=== PATIENT | female | born 1970 | race Caucasian/White ===

== ENCOUNTER 2021-01-30 01:26 | Day surgery (SDC) | payer OTHER, SELFPAY ==
[2020-12-11 14:56] VITALS: BMI 19.3
--- NOTE | 2020-12-19 09:29 | P.HP_ITS ---
History of Present Illness History of Present Illness Consent: Risks, benefits, and alternatives have been discussed and questions answered. Patient agrees to proceed with procedure. Chief complaint: epigastric pain, neoplasm screening Narrative: Odalis Knight is a 50 year old female Was being investigated for epigastric pain. She also is referred for colon cancer screening Review of Systems Review of Systems: All systems reviewed & are unremarkable except as noted in HPI and below [facility] Social History Social History Smoking status: Never smoker Alcohol intake: never Substance use: never Substance use type: does not use Living arrangements: with family Spiritual care concerns: No Meds Home Medications and Allergies Home Medications Medication Instructions Recorded Confirmed Type aspirin [Adult Aspirin EC Low 81 mg PO DAILY 12/11/20 12/11/20 History Strength] pantoprazole 40 mg PO BID 12/11/20 12/11/20 History rosuvastatin 10 mg PO HS 12/11/20 12/11/20 History Allergies Allergy/AdvReac Type Severity Reaction Status Date / Time ciprofloxacin Allergy Severe Swelling Verified 12/11/20 14:58 of Lip/Tongue/Throat Exam Resp: Auscultation: clear to auscultation bilaterally Cardio: Rate: regular rate Rhythm: regular rhythm GI: GI Palp: Yes Soft to palpation and No Tenderness to palpation present (GI) Assessment and Plan Assessment and plan (1) Epigastric pain: Code(s): R10.13 - Epigastric pain Status: Acute Assessment and Plan: EGD with possible biopsy or dilatation or cautery. (2) Colon cancer screening: Code(s): Z12.11 - Encounter for screening for malignant neoplasm of colon Status: Acute Assessment and Plan: Colonoscopy with possible biopsy or polypectomy or cautery or injection of substances.
[2021-01-21 13:22] VITALS: BMI 19.3
--- NOTE | 2021-01-21 14:00 | PC.NURSE ---
pt is going to have her covid test at [facility] [place]. pt instructed she will have to have it done on january 27 and results will need to be faxed. gave her our fax number. she voiced understanding.
[2021-01-30 10:37] VITALS: BP 99/75; PULSE 89; RESP 16; TEMP 36.7; O2SAT 100
[2021-01-30] MEDS: LACTATED RINGERS 1,000 ML 150 ML IV CONT (10:48)
--- NOTE | 2021-01-30 11:06 | WPDANESEPPF ---
Anes - Initial Pre Proc Eval Procedure: Operation Date: 01/30/21 11:30 Proposed Procedures p Esophagogastroduodenoscopy & Screening Colonoscopy - Von Zapata MD Date/Time: 01/30/21 11:06 Surgeon: Von Zapata MD Pre Op Diagnosis: epigastric pain, neoplasm screening Patient Data Age: 50 Gender: F Height: 1.68 m Weight: 53.2 kg Last Vital Signs Temp 98.0 F 01/30/21 10:37 Pulse 89 01/30/21 10:37 Resp 16 01/30/21 10:37 BP 99/75 L 01/30/21 10:37 Pulse Ox 100 01/30/21 10:37 Allergies Allergy/AdvReac Type Severity Reaction Status Date / Time ciprofloxacin Allergy Severe Swelling Verified 01/30/21 10:33 of Lip/Tongue/Throat Home Medications Medication Instructions Recorded Confirmed Type aspirin [Adult Aspirin EC Low 81 mg PO DAILY 12/11/20 01/30/21 History Strength] pantoprazole 40 mg PO BID 12/11/20 01/30/21 History rosuvastatin 10 mg PO HS 12/11/20 01/30/21 History Patient hx anesthesia problems: none Family hx anesthesia problems: none PMFSH Past Medical History Medical History (Updated 01/30/21 @ 11:06 by Clarence Bentley MD) GERD (gastroesophageal reflux disease) H/O idiopathic seizure Hyperlipidemia Mitral valve prolapse Social History Social History Smoking status: Never smoker Alcohol intake: never Substance use: never Substance use type: does not use Living arrangements: with family Spiritual care concerns: No Anes - Eval Final PreProcedure Day of Procedure 01/30/21 11:06 Patient weight: normal Heart: regular rate and rhythm Lungs: clear to auscultation Airway: Mallampati scale class II Neurological: alert and oriented Last oral intake: >/= 8 hours ASA classification: III Anesthetic plan: proceed Anesthesia type and monitoring: general GIVS and standard monitoring Informed Consent: The patient's anesthetic plan and its attendant risks and benefits were discussed with the patient/family/POA. Questions were solicited and answers provided to the satisfaction of the patient/family/POA.
--- NOTE | 2021-01-30 11:17 | PM.HPGS ---
History of Present Illness History of Present Illness Consent: Risks, benefits, and alternatives have been discussed and questions answered. Patient agrees to proceed with procedure. Chief complaint: epigastric pain, neoplasm screening Narrative: Odalis Knight is a 50 year old female who has been suffering from epigastric pain for the last several months. She had been on meloxicam but is started. She took pantoprazole for 8 weeks without any significant improvement. She noticed perhaps some decrease in daytime episodes of pain. She frequently wakes up at night with epigastric pain that will last at least 20 or 30 minutes or until she falls asleep. Drinking cold water aggravates the pain. She is also here for colon cancer screening Review of Systems Review of Systems: All systems reviewed & are unremarkable except as noted in HPI and below PMFSH Past Medical History Medical History GERD (gastroesophageal reflux disease) H/O idiopathic seizure Hyperlipidemia Mitral valve prolapse Social History Social History Smoking status: Never smoker Alcohol intake: never Substance use: never Substance use type: does not use Living arrangements: with family Spiritual care concerns: No Meds Home Medications and Allergies Home Medications Medication Instructions Recorded Confirmed Type aspirin [Adult Aspirin EC Low 81 mg PO DAILY 12/11/20 01/30/21 History Strength] pantoprazole 40 mg PO BID 12/11/20 01/30/21 History rosuvastatin 10 mg PO HS 12/11/20 01/30/21 History Allergies Allergy/AdvReac Type Severity Reaction Status Date / Time ciprofloxacin Allergy Severe Swelling Verified 01/30/21 10:33 of Lip/Tongue/Throat Vital Signs Vital Signs - 24 hr 01/30/21 10:37 Temperature 36.7 C Pulse Rate 89 Respiratory Rate 16 Blood Pressure 99/75 L Pulse Oximetry 100 Exam Const: General: alert Orientation/consciousness: patient oriented x3 Resp: Auscultation: clear to auscultation bilaterally Cardio: Rhythm: regular rhythm GI: GI Palp: Yes Soft to palpation and No Tenderness to palpation present (GI) Neuro: General: patient oriented x3 Assessment and Plan Assessment and plan (1) Epigastric pain: Code(s): R10.13 - Epigastric pain Status: Acute Assessment and Plan: EGD with possible biopsy or dilatation or cautery. (2) Colon cancer screening: Code(s): Z12.11 - Encounter for screening for malignant neoplasm of colon Status: Acute Assessment and Plan: Colonoscopy with possible biopsy or polypectomy or cautery or injection of substances.
[2021-01-30] MEDS: BENZOCAINE (*SP) 60 ML SPRAY CAN (HURRICAINE) 1 SPRAY MUCOUS MEM (11:30)
[2021-01-30 11:58] VITALS: BP 96/65; PULSE 78; RESP 24; O2SAT 100
[2021-01-30 12:08] VITALS: BP 104/52; PULSE 78; RESP 72; O2SAT 100
[2021-01-30 12:18] VITALS: BP 108/77; PULSE 78; RESP 68; O2SAT 100
== END 2021-01-30 12:45 | disposition home or self-care (01) ==
PROVIDERS: PCP Family Medicine; Visit Provider Internal Medicine Gastroenterology
PROC: 0DJ08ZZ Inspection of Upper Intestinal Tract, Via Natural or Artificial Opening Endoscopic (ICD-10-PCS; CPT 43235; principal; 2021-01-30 11:30)
DX: Z12.11 Encounter for screening for malignant neoplasm of colon (principal); R13.10 Dysphagia, unspecified; K21.9 Gastro-esophageal reflux disease without esophagitis; K29.70 Gastritis, unspecified, without bleeding; E78.5 Hyperlipidemia, unspecified; I34.1 Nonrheumatic mitral (valve) prolapse; Z79.82 Long term (current) use of aspirin
CPT/HCPCS: 43239; G0121; 87081; 88305; J2001; J2704; J7120

== ENCOUNTER 2022-05-18 07:50 | Outpatient (CLI) | payer OTHER, SELFPAY ==
--- NOTE | ~2022-05-18 | XR_ITS ---
EXAMINATION: XR UGIAC w barium swallow DATE: 05/18/2022 08:24 INDICATION: Epigastric abdominal pain. Gastroesophageal reflux disease. TECHNIQUE: The patient drank thick barium, gas-producing crystals, and thin barium. Fluoroscopy of th e esophagus, stomach, and proximal small bowel was performed. Fluoroscopy exposure time was 0.7 minut es. The total number of images was 277. Total dose-area product was 0.66 Gy-cm^2. COMPARISON: None. FINDINGS: There is no mass or stricture of the esophagus. Esophageal motility is normal. There is no hiatal hernia. There was no gastroesophageal reflux with provocative maneuvers. The stomach and proxi mal small bowel show normal folding patterns. The proximal jejunum is in the right abdomen, consisten t with bowel malrotation. IMPRESSION: 1. No etiology for the patient's symptoms. Reviewed, dictated and finalized at location A. [facility]
== END 2022-05-18 07:51 | disposition home or self-care (01) ==
PROVIDERS: Visit Provider Nurse Practitioner
DX: R10.13 Epigastric pain (principal); R14.2 Eructation
CPT/HCPCS: 74246

== ENCOUNTER → 2022-07-07 15:38 | Outpatient (CLI) | payer OTHER, SELFPAY ==
--- NOTE | ~2022-07-07 | CT_ITS ---
CT Angiogram of the Abdomen with contrast. History: Epigastric pain, jejunal malrotation. Spiral CT of the abdomen was performed after the administration of intravenous contrast. 100 cc of Om nipaque 350 was administered intravenously without complication. 3-D reconstructed images were perfor med by the technologist on the workstation. Dose reduction technique was used on this scan by [employer] automated exposure control and iterative reconstruction technique. The dose-length product (DLP) w as 166.82 mGy-cm. COMPARISON: 02/22/2015 Findings: Scans through the lung bases demonstrate linear left basilar atelectatic change or scarring . Minimal pericardial fluid noted. The liver, spleen, pancreas, adrenals and kidneys are within normal limits. Cholecystectomy clips pre sent. No evidence of aortic aneurysm. No lymphadenopathy is seen. Bowel somewhat difficult to trace, but ligament of Treitz is probably abnormally located, there is gifford spected reversal of the SMA/SMV relationship, suggestive of small bowel malrotation. No bowel obstruc tion or ascites evident. 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 Minimal pericardial fluid. Reviewed, dictated and finalized at location . 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 Minimal pericardial fluid.
== END ==
PROVIDERS: Visit Provider Nurse Practitioner
DX: R10.13 Epigastric pain (principal); R14.2 Eructation; K29.70 Gastritis, unspecified, without bleeding; K21.9 Gastro-esophageal reflux disease without esophagitis; R93.5 Abnormal findings on diagnostic imaging of other abdominal regions, including retroperitoneum
CPT/HCPCS: 74175; Q9967

== ENCOUNTER 2022-11-19 02:05 | Day surgery (SDC) | payer OTHER, SELFPAY ==
[2022-11-10 08:39] VITALS: BMI 19.5
--- NOTE | 2022-11-17 15:35 | PM.HPGS ---
History of Present Illness History of Present Illness Consent: Risks, benefits, and alternatives have been discussed and questions answered. Patient agrees to proceed with procedure. Chief complaint: GERD Narrative: Odalis Knight is a 52 year old female Who comes in today for investigation of globus and possible GERD. She has a congenital small bowel movement rotation and history of NERD with chronic gastritis. Supposed to see Dr. Bell but had to cancel appt due to illness with (esop cancer) and mother (lung CA).? She states for the last several months she has been having a globus sensation or a lump feeling in her upper esophagus that occurs only with swallowing.? She feels like something will move In her throat on the left side if she turns her neck a certain way. She has seen an ENT physician and is supposed to go back next week.? She does state that she feels like liquids and foods moving more slowly down her esophagus but do not get stuck.? Denies odynophagia.? She also reports that she has been noticing that her cheeks are more swollen which is causing her to bite on the side of her tongue along with hoarseness of her voice. She also feels it in her ears as well.? Denies any typical reflux symptoms.? PCP placed her on Omeprazole 20 mg daily and has not noticed any change in symptoms. She previously was on Famotidine 40 mg daily but stopped this several months ago. I had performed an EGD and colonoscopy 2 years ago. She was found have gastritis on EGD but otherwise examination was unremarkable. 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 Mitral valve prolapse Nonerosive esophageal reflux disease Postprandial epigastric pain Swelling of buccal mucosa Social History Social History Smoking status: Never smoker Alcohol intake: never Substance use: never Substance use type: does not use Living arrangements: with family Spiritual care concerns: No Meds Home Medications and Allergies Home Medications Medication Instructions Recorded Confirmed Type aspirin 81 mg tablet,delayed 81 mg PO DAILY 12/11/20 11/10/22 History release rosuvastatin 10 mg tablet 10 mg PO HS 12/11/20 11/10/22 History omeprazole 20 mg capsule,delayed 20 mg PO DAILY 10/26/22 11/10/22 History release Allergies Allergy/AdvReac Type Severity Reaction Status Date / Time ciprofloxacin Allergy Severe Swelling Verified 11/19/22 09:24 of Lip/Tongue/Throat Exam Const: General: alert Orientation/consciousness: patient oriented x3 Resp: Auscultation: clear to auscultation bilaterally Cardio: Rhythm: regular rhythm GI: GI Palp: Yes Soft to palpation and No Tenderness to palpation present (GI) Neuro: General: patient oriented x3 Assessment and Plan Assessment and plan (1) Dysphagia: Code(s): R13.10 - Dysphagia, unspecified Status: Acute Assessment and Plan: EGD with possible biopsy or dilatation or cautery.
[2022-11-19 09:25] VITALS: BP 103/69; PULSE 82; RESP 20; TEMP 36.8; O2SAT 98
[2022-11-19] MEDS: LACTATED RINGERS 1,000 ML 150 ML IV CONT (09:38)
--- NOTE | 2022-11-19 10:09 | P.PNAN_ITS ---
Anes - Initial Pre Proc Eval Procedure: Operation Date: 11/19/22 10:45 Proposed Procedures p Esophagogastroduodenoscopy - Von Zapata MD Date/Time: 11/19/22 10:09 Surgeon: Von Zapata MD Pre Op Diagnosis: GERD Patient Data Age: 52 Gender: F Height: 1.68 m Weight: 56.6 kg Last Vital Signs Temp 98.2 F 11/19/22 09:25 Pulse 82 11/19/22 09:25 Resp 20 11/19/22 09:25 BP 103/69 11/19/22 09:25 Pulse Ox 98 11/19/22 09:25 O2 Del Method Room Air 11/19/22 09:25 Allergies Allergy/AdvReac Type Severity Reaction Status Date / Time ciprofloxacin Allergy Severe Swelling Verified 11/19/22 09:24 of Lip/Tongue/Throat Home Medications Medication Instructions Recorded Confirmed Type aspirin 81 mg tablet,delayed 81 mg PO DAILY 12/11/20 11/10/22 History release rosuvastatin 10 mg tablet 10 mg PO HS 12/11/20 11/10/22 History omeprazole 20 mg capsule,delayed 20 mg PO DAILY 10/26/22 11/10/22 History release Patient hx anesthesia problems: none Family hx anesthesia problems: none Results Review: All pre-operative results and documents have been reviewed as part of the pre-operative evaluation. 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 Mitral valve prolapse Nonerosive esophageal reflux disease Postprandial epigastric pain Swelling of buccal mucosa Social History Social History Smoking status: Never smoker Alcohol intake: never Substance use: never Substance use type: does not use Living arrangements: with family Spiritual care concerns: No Anes - Eval Final PreProcedure Day of Procedure 11/19/22 10:09 Patient weight: normal Heart: regular rate and rhythm Lungs: clear to auscultation Airway: Mallampati scale class II Neurological: alert and oriented Last oral intake: >/= 8 hours ASA classification: III Emergent: no Anesthetic plan: proceed Anesthesia type and monitoring: general GIVS and standard monitoring Results Review: All pre-operative results and documents have been reviewed as part of the pre- operative evaluation. Informed Consent: The patient's anesthetic plan and its attendant risks and benefits were discussed with the patient/family/POA. Questions were solicited and answers provided to the satisfaction of the patient/family/POA.
[2022-11-19 10:40] VITALS: BP 85/52; PULSE 64; RESP 13; O2SAT 100
[2022-11-19 10:50] VITALS: BP 96/62; PULSE 63; RESP 17; O2SAT 93
[2022-11-19 11:00] VITALS: BP 94/64; PULSE 59; RESP 19; O2SAT 100
== END 2022-11-19 11:13 | disposition home or self-care (01) ==
PROVIDERS: PCP Internal Medicine; Visit Provider Internal Medicine Gastroenterology
PROC: 0DJ08ZZ Inspection of Upper Intestinal Tract, Via Natural or Artificial Opening Endoscopic (ICD-10-PCS; CPT 43235; principal; 2022-11-19 10:45)
DX: R13.10 Dysphagia, unspecified (principal); K21.9 Gastro-esophageal reflux disease without esophagitis; K44.9 Diaphragmatic hernia without obstruction or gangrene; I34.1 Nonrheumatic mitral (valve) prolapse; E78.5 Hyperlipidemia, unspecified
CPT/HCPCS: 43235; J2704; J7120